=== PATIENT | female | born 1965 | race American Indian/Alaskan Native ===

== ENCOUNTER → 2017-07-15 | Outpatient (CLI) | payer MEDICARE, MEDICAID | END | disposition home or self-care (01) | LOC: MAMMO 10:37 | PROVIDERS: ATTEND Internal Medicine Critical Care Medicine | DX: Z12.31 Encounter for screening mammogram for malignant neoplasm of breast (principal) | CPT/HCPCS: 77067 ==

== ENCOUNTER → 2020-09-18 | Outpatient (CLI) | payer MEDICARE, MEDICAID ==
[~2020-09-18] MED LIST: IOHEXOL-300 100 ML BOTTLE ONE
== END | disposition home or self-care (01) ==
LOC: CT 12:59
DX: D49.89 Neoplasm of unspecified behavior of other specified sites (principal); Q07.8 Other specified congenital malformations of nervous system
CPT/HCPCS: 70482; Q9967

== ENCOUNTER 2023-01-08 11:22 | Emergency (ER) | payer MEDICARE, MEDICAID ==
[~2023-01-08] VITALS: Ht 165.1 cm; Wt 87.0 kg
[2023-01-08 11:38] VITALS: TEMP 98.3
[2023-01-08] MEDS ORDERED: ALBUTEROL (0.5%) 2.5MG/0.5ML NEB HHN ONE (12:00)
[2023-01-08 12:55] LABS: CLARITY URINE CLEAR (CLEAR); COLOR URINE YELLOW (YELLOW); GLUCOSE URINE NEGATIVE (NEGATIVE); KETONES URINE NEGATIVE (NEGATIVE); LEUKOCYTE ESTERASE URINE NEGATIVE (NEGATIVE); NITRITE URINE NEGATIVE (NEGATIVE); OCCULT BLOOD URINE NEGATIVE (NEGATIVE); PH URINE 7.5 (4.5-8.0); PROTEIN URINE NEGATIVE (NEGATIVE)
[2023-01-08 13:07] VITALS: PULSE 76; RESP 18; O2SAT 98
[2023-01-08] MEDS ORDERED: NITR-87 PO (13:58)
[2023-01-08] MEDS ORDERED: P50 PO (13:58)
[2023-01-08 14:15] VITALS: BP 125/79; PULSE 85; RESP 21
== END 2023-01-08 14:16 | disposition home or self-care (01) ==
LOC: ER 11:22
DX: J45.901 Unspecified asthma with (acute) exacerbation (principal); Z88.2 Allergy status to sulfonamides
CPT/HCPCS: 81003; 94640; 99283

== ENCOUNTER → 2023-04-23 | Outpatient (CLI) | payer MEDICARE, MEDICAID ==
[~2023-04-23] MED LIST changes: -IOHEXOL-300 100 ML BOTTLE ONE; +NITR-87 PO; +P50 PO
== END | disposition home or self-care (01) ==
LOC: MAMMO 11:11
PROVIDERS: ATTEND Family Medicine
DX: Z12.31 Encounter for screening mammogram for malignant neoplasm of breast (principal)
CPT/HCPCS: 77067